=== PATIENT | male | born 2000 | race Caucasian/White ===

== ENCOUNTER 2020-12-31 11:51 | Emergency (ER) | payer OTHER ==
[~2020-12-31] VITALS: Ht 182.9 cm; Wt 76.0 kg
[2020-12-31 11:51] VITALS: BP 144/82
--- NOTE | 2020-12-31 15:14 | REP ---
INDICATION: helmet dropped on right great toe. COMPARISON: None. TECHNIQUE: Four views of the right great toe. FINDINGS: Four views of the right great toe demonstrate normal bones, joints, and soft tissues. No fracture or subluxation is seen. No opaque foreign body noted. IMPRESSION: Negative right great toe series. <Electronically signed by Medardo Banda > 12/31/20 1966
[2020-12-31] MEDS ORDERED: BACTRIM 160MG/800MG DS TAB PO ONE (15:20)
[2020-12-31] MEDS ORDERED: KETOROLAC TROMETHAMINE 10 MG TAB PO ONE (15:20)
[2020-12-31] MEDS ORDERED: BACT800T5 PO (15:34)
== END 2020-12-31 16:05 | disposition home or self-care (01) ==
LOC: M ED 11:51
DX: S91.201A Unspecified open wound of right great toe with damage to nail, initial encounter (principal); L03.031 Cellulitis of right toe; W20.8XXA Other cause of strike by thrown, projected or falling object, initial encounter; Y92.099 Unspecified place in other non-institutional residence as the place of occurrence of the external cause; Y93.9 Activity, unspecified; Y99.9 Unspecified external cause status; Z88.0 Allergy status to penicillin

== ENCOUNTER 2021-02-11 07:12 | Emergency (ER) | payer OTHER ==
[~2021-02-11] VITALS: Ht 180.3 cm; Wt 75.7 kg
[~2021-02-11 07:12] MED LIST: BACT800T5 PO
[2021-02-11] MEDS ORDERED: NAPR-837 PO (08:28)
[2021-02-11 08:35] VITALS: BP 140/87
== END 2021-02-11 08:39 | disposition home or self-care (01) ==
LOC: EDBD 07:12 → M ED 07:12
DX: M19.011 Primary osteoarthritis, right shoulder (principal); Z88.0 Allergy status to penicillin

== ENCOUNTER → 2022-11-19 | Outpatient (REF) ==
[~2022-11-19] MED LIST changes: +NAPR-837 PO
== END ==
LOC: M PLAIMG 10:16
PROVIDERS: ATTEND Internal Medicine
DX: M79.661 Pain in right lower leg (principal); M25.511 Pain in right shoulder; R06.02 Shortness of breath

== ENCOUNTER → 2024-07-27 | Outpatient (REF) | LOC: M PLAIMG 09:22 | PROVIDERS: ATTEND Internal Medicine | DX: M79.604 Pain in right leg (principal); M79.605 Pain in left leg; R06.02 Shortness of breath ==

== ENCOUNTER 2024-08-07 22:34 | Emergency (ER) | payer OTHER ==
[~2024-08-07] VITALS: Ht 185.4 cm; Wt 103.1 kg
[2024-08-07 22:39] VITALS: TEMP 98.1; O2SAT 98
[2024-08-08] MEDS: LIDOCAINE 2% MDV 20ML VIAL SC ONE (01:21)
[2024-08-08] MEDS: ONDANSETRON 4MG ORAL DISINTEGRATING TAB PO ONE (01:32)
[2024-08-08 02:25] VITALS: BP 124/62
== END 2024-08-08 02:30 | disposition home or self-care (01) ==
LOC: M ED 22:34
DX: L05.01 Pilonidal cyst with abscess (principal); F17.200 Nicotine dependence, unspecified, uncomplicated; F10.10 Alcohol abuse, uncomplicated; Z88.0 Allergy status to penicillin; Z79.1 Long term (current) use of non-steroidal anti-inflammatories (NSAID)